=== PATIENT | female | born 2000 | race Two or more races ===

== ENCOUNTER 2022-10-31 19:28 | Emergency (ER) | payer OTHER, SELFPAY ==
--- NOTE | 2022-10-31 19:32 | ED.GENADULT ---
HPI - General Adult General Chief complaint: Dental/Oral Stated complaint: Lower Tooth Abscess Time Seen by Provider: 10/31/22 19:32 History of Present Illness HPI narrative: The patient is a 22-year-old woman with a history of dental issues for the last year and a half. She has been diagnosed with a dental abscess in the right lower anterior molar but has not been able to see a dentist. She has not been on any antibiotics recently. She has a dentist in [place]. Today, for the last 3 days, the patient has had pain in the right lower tooth. She has taken aspirin and Tylenol for the pain. No facial swelling. No fevers. Able to drink any other difficulties. No URI UTI symptoms. Last menstrual period October 11, 2022. No significant past medical history. Related Data Allergies Allergy/AdvReac Type Severity Reaction Status Date / Time No Known Allergies Allergy Verified 10/31/22 19:35 Review of Systems Review of Systems: All systems reviewed & are unremarkable except as noted in HPI and below Constitutional: Constitutional: Denies chills, Denies excessive sweating, Denies fatigue, Denies fever(s), Denies headache(s) and Denies weakness Eyes: Eyes: Denies change in vision and Denies photophobia ENT: Denies dysphagia, Denies dizziness, Denies headache(s), Denies lip swelling, Denies nasal congestion, Denies sore throat and Denies tongue swelling Comments: Dental pain Cardiovascular: Cardiovascular: Denies chest pain, Denies syncope, Denies rapid heart rate and Denies dyspnea Respiratory: Respiratory: Denies cough, Denies dyspnea and Denies wheezing Gastrointestinal: Gastrointestinal: Denies abdominal pain, Denies constipation, Denies dysphagia, Denies diarrhea, Denies nausea and Denies vomiting Genitourinary: Genitourinary: Denies hematuria, Denies urinary frequency, Denies dysuria and Denies urinary urgency Musculoskeletal: Musculoskeletal: Denies back pain, Denies myalgias, Denies arthralgias, Denies joint swelling and Denies numbness Integumentary/Breasts: Skin/Breast: Denies pruritus, Denies erythema and Denies rash Neurologic: Denies confusion, Denies dizziness, Denies syncope, Denies headache(s), Denies focal weakness, Denies numbness and Denies weakness Psychiatric: Psychiatric: Denies anxiety and Denies confusion Endocrine: Endocrine: Denies excessive sweating and Denies fatigue Hematologic/Lymphatic: Hematologic/Lymphatic: Denies easy bleeding and Denies easy bruising Allergic/Immunologic: Allergic/Immunologic: Denies lip swelling, Denies tongue swelling and Denies wheezing Exam Const: General: healthy appearing, no acute distress, alert and well nourished Nutritional Appearance: well nourished Orientation/consciousness: patient oriented x3 Limitations: no limitations HENMT: Head: normal to inspection Ears: external ears normal Face/Nose/Sinus: normal facial exam Face and sinus: normal facial exam Mouth: Yes moist mucous membranes Teeth and gingiva: abnormal tooth and associated gingiva ( dental pain, draining dental abscess right posterior molar 2nd from back ) Throat: posterior oropharynx normal Other: dental pain in the tooth that has a gingival reaction with drainage, minimal white drainage. Does have caries elsewhere. No other dental tenderness. No loose teeth. No fractured teeth Eyes: Conjunctivae: conjunctivae normal Pupils: Equal, round and reactive pupils present EOM: EOMs intact bilaterally Neck: Neck: normal visual inspection and no meningeal signs Chest: Chest palpation & inspection: normal inspection of the chest and no tenderness Resp: Effort & Inspection: normal respiratory effort and not labored Auscultation: clear to auscultation bilaterally, no crackles, no rhonchi and no wheezes Cardio: Rate: regular rate Rhythm: regular rhythm Heart sounds: no murmurs GI: Inspection: non-distended GI Palp: Yes Soft to palpation, No Tenderness to palpation present (GI),
[2022-10-31 19:35] VITALS: BP 111/74; PULSE 72; RESP 16; TEMP 37.7; O2SAT 99
[2022-10-31] MEDS: ACETAMINOPHEN 325 MG TABLET 650 MG PO (20:07)
[2022-10-31] MEDS: IBUPROFEN 600 MG TABLET PO (20:07)
[2022-10-31] MEDS: AMOXICILLIN 500 MG CAPSULE PO (20:07)
--- NOTE | 2022-10-31 20:10 | PC.NURSE ---
ERP aware pt took ASA at 1600 and states may proceed with ibuprofen administration as ordered.
== END 2022-10-31 20:15 | disposition home or self-care (01) ==
PROVIDERS: Emergency Provider Emergency Medicine
DX: K04.7 Periapical abscess without sinus (principal); K02.9 Dental caries, unspecified
CPT/HCPCS: 99283; A9270

== ENCOUNTER 2023-10-18 08:14 | Emergency (ER) | payer OTHER, SELFPAY ==
[2023-10-18 08:14] VITALS: BP 117/72; PULSE 99; RESP 16; TEMP 36.9; O2SAT 98
[2023-10-18 08:33] LABS: Appearance Urine Sl Cloudy (Clear); Bilirubin Urine Negative (Negative); Blood Urine 2+ (Negative); Color Urine Light Yellow (Yellow); Glucose Urine UA Negative (Negative); Ketones Urine Negative (Negative); Leukocyte Esterase Ur 2+ LEU/UL (Negative); Nitrate Urine Negative (Negative); Protein Urine Trace (Negative); Urobilinogen Urine 0.2 mg/dL (0.2-1.0); pH Urine 6.5 (5.0-8.0)
[2023-10-18 08:47] LABS: Add Urine Microscopic? YES
[2023-10-18 08:48] LABS: Bacteria Urine Trace /hpf; Squamous Epithelial Cell Urine Few /hpf (Few); WBC Urine 31-50 /hpf (0-3)
--- NOTE | 2023-10-18 08:51 | ED.FEMALEGU ---
HPI - Female Genitourinary General Chief complaint: Urogenital-Female Stated complaint: right flank pain. Time Seen by Provider: 10/18/23 08:17 Source: patient Mode of arrival: ambulatory Limitations: no limitations History of Present Illness HPI Narrative: this is a 23-year-old female with a complaint of urinary frequency with burning suprapubic tenderness with no flank pain no fever chills no nausea vomiting no chest pain or shortness of breath. MD elicited complaint: dysuria Severity: moderate Female Urogenital Radiation: Suprapubic Quality of pain: burning and aching Related Data Allergies Allergy/AdvReac Type Severity Reaction Status Date / Time No Known Allergies Allergy Verified 10/18/23 08:16 Review of Systems Review of Systems: All systems reviewed & are unremarkable except as noted in HPI and below PMFSH Past Medical History Medical History Patient denies medical problems Exam Const: General: healthy appearing Nutritional Appearance: well nourished Orientation/consciousness: patient oriented x3 Limitations: no limitations Chest: Chest palpation & inspection: normal inspection of the chest Resp: Effort & Inspection: normal respiratory effort Auscultation: clear to auscultation bilaterally Cardio: Rate: regular rate Rhythm: regular rhythm GI: GI Palp: Yes Soft to palpation and Yes Tenderness to palpation present (GI) ( suprapubic tenderness) : General: Yes Bladder palpation abnormal Urinary Catheter: Urinary Catheter: patent and draining Back/Spine/Pelvis: Back: no CVA tenderness Skin: General skin exam: normal color Rashes: no rashes Course Course Emergency Course: urinalysis performed shows that she has urinary tract infection will send antibiotics to her local pharmacy. Vital Signs Vital signs: Vital Signs Temperature 36.9 C 10/18/23 08:14 Pulse Rate 99 10/18/23 08:14 Respiratory Rate 16 10/18/23 08:14 Blood Pressure 117/72 10/18/23 08:14 Pulse Oximetry 98 10/18/23 08:14 Oxygen Delivery Room Air 10/18/23 08:14 Temperature 36.9 C 10/18/23 08:14 Pulse Rate 99 10/18/23 08:14 Respiratory Rate 16 10/18/23 08:14 Blood Pressure 117/72 10/18/23 08:14 Pulse Oximetry 98 10/18/23 08:14 Oxygen Delivery Room Air 10/18/23 08:14 MDM - Female Genitourinary Lab Data Labs: Lab Results 10/18/23 Range/Units 08:21 Urine Color Light yellow (Yellow) Urine Appearance Sl cloudy A (Clear) Urine pH 6.5 (5.0-8.0) Ur Specific Gate 1.010 (1.010-1.020) Urine Protein Trace H (Negative) Urine Glucose (UA) Negative (Negative) Urine Ketones Negative (Negative) Ur Blood (Man) 2+ H (Negative) Urine Nitrate Negative (Negative) Urine Bilirubin Negative (Negative) Urine Urobilinogen 0.2 (0.2-1.0) mg/dL Leukocyte Esterase Rfl 2+ H (Negative) JANNIE/UL Urine RBC 6-10 H (0-2) /hpf Urine WBC 31-50 H (0-3) /hpf Ur Squamous Epith Cells Few (Few) /hpf Urine Bacteria Trace (None) /hpf Critical Care Time Critical Care Time Critical Care Time: No Discharge Plan Discharge Clinical Impression: Urinary tract infection Qualifiers: Urinary tract infection type: acute cystitis Hematuria presence: without hematuria Qualified Code(s): N30.00 - Acute cystitis without hematuria Patient Disposition: Home, Self-Care Condition: Stable Instructions: Antibiotic Form, Urinary Tract Infection in Women (ED) Additional Instructions: Advised to take Tylenol or Motrin along with antibiotics prescribed and follow with primary if symptoms persist or worsen. Prescriptions: New nitrofurantoin monohyd/m-cryst [Macrobid] 100 mg capsule 100 mg PO Q12H 7 Days Qty: 14 0RF Rx Instructions: must administer with a meal/food Follow-up/Referrals: UNKNOWN,DOCTOR [Primary Care Provider] - Time of Disposition: 08:54
[2023-10-18 09:01] VITALS: BP 103/68; PULSE 98; RESP 16; TEMP 37; O2SAT 99
--- NOTE | 2023-10-20 13:27 | PC.NURSE ---
final urine culture reviewed. sensitivity for macrobid noted. pt was prescribed macrobid at discharge. no change in plan of care.
== END 2023-10-18 09:01 | disposition home or self-care (01) ==
PROVIDERS: Emergency Provider Emergency Medicine
DX: N30.00 Acute cystitis without hematuria (principal)
CPT/HCPCS: 81001; 87077; 87086; 87088; 87186; 99283

== ENCOUNTER 2024-03-24 08:07 | Emergency (ER) | payer SELFPAY ==
[2024-03-24 08:11] VITALS: BP 123/67; PULSE 66; RESP 18; TEMP 36.3; O2SAT 100
--- NOTE | 2024-03-24 08:12 | ED.FEMALEGU ---
HPI - Female Genitourinary General Chief complaint: Vaginal Bleeding Stated complaint: possible Time Seen by Provider: 03/24/24 08:12 Source: patient Mode of arrival: ambulatory Limitations: no limitations History of Present Illness HPI Narrative: 24-year-old female who is presents to the ED with -- vaginal bleeding with cramps. Vaginal bleeding started this morning. Her LMP was 02/15/2024. Home test was positive. unsure whether this is a miscarriage versus her regular menstrual period. no fever or chills. MD elicited complaint: vaginal bleeding Onset (ago): hour(s) ( 3 hours) Vaginal bleeding: heavy Exacerbating factors: none Relieving factors: none Related Data Home Medications Medication Instructions Recorded Confirmed No Home Medications 03/24/24 03/24/24 Allergies Allergy/AdvReac Type Severity Reaction Status Date / Time No Known Allergies Allergy Verified 03/24/24 08:10 Review of Systems Review of Systems: All systems reviewed & are unremarkable except as noted in HPI and below Constitutional: Constitutional: Reports as per HPI and Reports no additional constitutional complaints Eyes: Eyes: Reports as per HPI and Reports no additional eye complaints ENT: Reports system reviewed and no additional complaints, except as documented and Reports as per HPI Cardiovascular: Cardiovascular: Reports as per HPI and Reports no additional cardiovascular complaints Respiratory: Respiratory: Reports as per HPI and Reports no additional respiratory complaints Gastrointestinal: Gastrointestinal: Reports as per HPI and Reports no additional gastrointestinal complaints Genitourinary: Genitourinary: Reports no additional female genitourinary complaints, Reports as per HPI and Reports abnormal vaginal bleeding Musculoskeletal: Musculoskeletal: Reports no additional musculoskeletal complaints and Reports as per HPI Integumentary/Breasts: Skin/Breast: Reports system reviewed and no additional complaints, except as docu and Reports as per HPI Neurologic: Reports system reviewed and no additional complaints, except as documented and Reports as per HPI Psychiatric: Psychiatric: Reports no additional psychiatric complaints and Reports as per HPI Endocrine: Endocrine: Reports no additional endocrine complaints and Reports as per HPI Hematologic/Lymphatic: Hematologic/Lymphatic: Reports no additional hematologic/lymphatic complaints and Reports as per HPI Allergic/Immunologic: Allergic/Immunologic: Reports no additional allergic/immunologic complaints and Reports as per HPI [facility] Past Medical History Medical History (Updated 03/24/24 @ 09:13 by Tanmay Harper MD) Patient denies medical problems Surgical History Surgical History (Updated 03/24/24 @ 08:22 by Tanmay Harper MD) deliv NOS-unsp Exam Narrative: vitals are stable. Const: General: healthy appearing Nutritional Appearance: well nourished Orientation/consciousness: patient oriented x3 Limitations: no limitations HENMT: Head: normal to inspection Ears: external ears normal Face/Nose/Sinus: Normal external nose present Face and sinus: normal facial exam Mouth: Yes Normal oral and palatal mucosa present Throat: posterior oropharynx normal Eyes: Conjunctivae: conjunctivae normal Pupils: Equal, round and reactive pupils present EOM: EOMs intact bilaterally Direct Ophthalmoscopy: no photophobia Neck: Neck: normal visual inspection, no lymphadenopathy and no meningeal signs Chest: Chest palpation & inspection: normal inspection of the chest Resp: Effort & Inspection: normal respiratory effort Auscultation: clear to auscultation bilaterally Cardio: Rate: regular rate Rhythm: regular rhythm GI: GI Palp: Yes Soft to palpation Auscultation: normal bowel sounds Other: No tenderness/rigidity / rebound. : General: Yes no CVA tenderness Back/Spine/Pelvis: Back: no CVA tende
--- NOTE | 2024-03-24 08:37 | PC.NURSE ---
PT IS AWAITING RESULTS AT THIS TIME. NAD NOTED. PT DENIES ANY NEEDS OR COMPLAINTS, DECLINES BLANKET. WILL CONTINUE TO MONITOR.
[2024-03-24 08:43] LABS: Basophils Absolute Auto 0.03 K/mm3 (0.00-0.10); Basophils Percent Auto 0.4 % (0.0-1.0); Eosinophils Absolute Auto 0.18 K/mm3 (0.02-0.50); Eosinophils Percent Auto 2.6 % (1.0-6.0); Hemoglobin 12.9 g/dL (12.0-15.0); Immature Granulocyte Absolute 0.02 K/mm3 (0.00-0.00); Immature Granulocyte Percent A 0.3 % (0.0-0.0); Lymphocytes Absolute Auto 1.76 K/mm3 (1.10-4.50); Lymphocytes Percent Auto 25.7 % (18.0-42.0); Mean Corpuscular HGB Conc 33.1 g/dL (32-36); Mean Corpuscular Hemoglobin 30.4 pg (27.0-31.0); Mean Corpuscular Volume 91.8 fL (78.0-102.0); Mean Platelet Volume 9.1 fl (9.2-11.8); Monocytes Absolute Auto 0.45 K/mm3 (0.10-0.90); Monocytes Percent Auto 6.6 % (2.0-11.0); Neutrophils Percent Auto 64.4 % (50.0-70.0); Platelet Count Result 247 K/mm3 (150-420); Red Blood Count 4.25 M/mm3 (4.20-5.40); Red Cell Distribution Width 12.2 % (11.6-14.4); White Blood Count 6.8 K/mm3 (4.8-10.8)
[2024-03-24 09:00] LABS: INR 0.9; Partial Thromboplastin Time 27.8 Sec (23.9-30.70); Prothrombin Time 10.3 Seconds (9.50-12.1)
[2024-03-24 09:06] LABS: Alanine Aminotransferase 61 U/L (14-59); Albumin Level 3.4 g/dL (3.4-5.0); Alkaline Phosphatase 93 U/L (46-116); Anion Gap 8 mmol/L (4-12); Aspartate Amino Transferase 31 U/L (15-37); Bilirubin,Total 0.5 mg/dL (0.00-1.00); Blood Urea Nitrogen 11 mg/dL (7-18); Carbon Dioxide 28 mmol/L (21-32); Chloride 104 mmol/L (98-108); Estimated CRCL calculation 99 ml/min; Estimated Glomerular Filt Rate > 60; Glucose 103 mg/dL (70-99); Osmolality Calculated 289 mOsm/kg (285-295); Potassium 3.9 mmol/L (3.5-5.1); Sodium 140 mmol/L (136-145)
[2024-03-24 09:07] LABS: Beta HCG Quantitative < 1.00 mIU/mL (0-6)
[2024-03-24 09:26] VITALS: BP 121/69; PULSE 69; RESP 17; TEMP 36.3; O2SAT 100
== END 2024-03-24 09:26 | disposition home or self-care (01) ==
PROVIDERS: Emergency Provider Internal Medicine Critical Care Medicine
DX: N94.6 Dysmenorrhea, unspecified (principal)
CPT/HCPCS: 36415; 80053; 84702; 85025; 85610; 85730; 99283